=== PATIENT | female | born 1955 | race Caucasian/White ===

== ENCOUNTER 2019-06-27 18:03 | Emergency (ER) | payer MEDICARE ==
[~2019-06-27] VITALS: Ht 152.4 cm; Wt 120.0 kg
[~2019-06-27 18:03] MED LIST: ADVAIR 250-501 EACH INH; ALBUTEROL2.5 MG/0.5 INH; BUPROPION XL300 MG PO; CLEOCIN HCL300 MG PO; COMBIVENT RESPIM4 GM; COMBIVENT RESPIM4 GM INH; FUROSEMIDE40 MG PO; GABAPENTIN300 MG PO; IPRAT-ALBUT 0.5-3 ML INH; K-TAB ER20 MEQ PO; LASIX40 MG PO; LISINOPRIL10 MG PO; LISINOPRIL20 MG PO; LOVASTATIN10 MG PO; LOVASTATIN20 MG PO; METFORMIN HCL1000 M1; METFORMIN HCL1000 MG PO; METFORMIN HCL500 M1 PO; POTASSIUM CHLO20 ME1 PO; QVAR7.3 G1 INH; SULINDAC150 MG PO; TORSEMIDE20 MG PO; VENTOLIN HFA18 GM INH
--- NOTE | 2019-06-28 18:04 | EKG ---
[facility] [address] [facility] [place] [address] Signed Normal sinus rhythm Left anterior fascicular block Nonspecific T wave abnormality Abnormal ECG When compared with ECG of 28-SEP-2016 11:49, Left anterior fascicular block is now present Non-specific change in ST segment in Lateral leads T wave inversion now evident in Anterior leads Confirmed by CIERRA RAZA DO ([id number]) on 06/28/2019 6:04:01 PM Electronically Signed By: CIERRA RAZA DO 06/28/19 1804 PATIENT NAME: VIVIAN VALENTE JEREMIAH Electrocardiogram DATE OF : 55 PHYSICIAN: CIERRA RAZA DO REPORT #: [id number] REPORT IS CONFIDENTIAL AND NOT TO BE RELEASED WITHOUT AUTHORIZATION
== END 2019-06-27 21:29 | disposition short-term general hospital (02) ==
LOC: ED 18:03
DX: J96.00 Acute respiratory failure, unspecified whether with hypoxia or hypercapnia (principal); E11.40 Type 2 diabetes mellitus with diabetic neuropathy, unspecified; J44.9 Chronic obstructive pulmonary disease, unspecified; F17.200 Nicotine dependence, unspecified, uncomplicated; Z79.899 Other long term (current) drug therapy
CPT/HCPCS: 36600; 51702; 71045; 80053; 81001; 82803; 83605; 83880; 84484; 85025; 93005; 93010; 94002; 94640; 99285-25; J1940; J2704; J2930; J7060; J7121

== ENCOUNTER 2019-08-24 20:16 | Emergency (ER) | payer MEDICARE ==
[~2019-08-24] VITALS: Ht 152.4 cm; Wt 99.8 kg
[2019-08-24] MEDS ORDERED: PROZAC40 MG PO ×2 (21:42→21:51)
[2019-08-24] MEDS ORDERED: TORSEMIDE20 MG PO ×2 (21:43→21:51)
[2019-08-24] MEDS ORDERED: BUPROPION XL300 MG PO (21:51)
[2019-08-24] MEDS ORDERED: KEFLEX500 MG PO (21:51)
[2019-08-24] MEDS ORDERED: LOVASTATIN20 MG PO (21:51)
[2019-08-24] MEDS ORDERED: K-TAB ER20 MEQ PO (21:51)
== END 2019-08-24 22:05 | disposition home or self-care (01) ==
LOC: ED 20:16
DX: L03.116 Cellulitis of left lower limb (principal); L03.115 Cellulitis of right lower limb; R60.0 Localized edema; E11.40 Type 2 diabetes mellitus with diabetic neuropathy, unspecified; J44.9 Chronic obstructive pulmonary disease, unspecified; F17.200 Nicotine dependence, unspecified, uncomplicated; Z88.5 Allergy status to narcotic agent; Z88.8 Allergy status to other drugs, medicaments and biological substances; Z79.899 Other long term (current) drug therapy
CPT/HCPCS: 71045; 80053; 83880; 84484; 85025; 96374; 96375; 99284-25; J0690; J1940

== ENCOUNTER 2020-03-18 13:06 | Emergency (ER) | payer MEDICARE ==
[~2020-03-18] VITALS: Ht 152.4 cm; Wt 118.2 kg
[~2020-03-18 13:06] MED LIST changes: +KEFLEX500 MG PO; +PROZAC40 MG PO
[2020-03-18] MEDS ORDERED: DICLOFENAC SODI50 MG PO (13:11)
[2020-03-18] MEDS ORDERED: TORSEMIDE10 MG PO (13:13)
--- NOTE | 2020-03-18 14:54 | NUR ---
I WAS NOTIFIED BY GERARDO PALMER THAT PT WAS BROUGHT IN BY EMT UNRESPONSIVE AND ED STAFF FEEL A NEED TO HAVE FAMILY CALLED IN. CALLED ALL NUMBERTS WE HAD FOUND, SEVERAL NOT WORKING. TYPO ON FACE SHEET CORRECTED WITH CORRECT PHONE # LEFT MSG, NO RESPONSE BY FAMILY TO THIS MOMENT. PENDING IMAGING RESULTS, PT MAY BE TRANSFERRED TO ANOTHER FACILITY. IF NEEDED WILL CONTACT POLICE DISPATCH-THEY WILL SEND OFFICER TO HOME FOR NOTIFICATION. PT IS PRESENTLY ON VENTILATOR
--- NOTE | 2020-03-20 14:11 | EKG ---
[facility] [address] [place] [address] Signed Normal sinus rhythm Right bundle branch block Abnormal ECG When compared with ECG of 27-JUN-2019 18:52, Right bundle branch block is now present Confirmed by CORTEZ BARRIENTOS MD ([id number]) on 03/20/2020 2:11:20 PM Electronically Signed By: CORTEZ BARRIENTOS MD 03/20/20 1411 PATIENT NAME: VIVIAN VALENTE Electrocardiogram DATE OF : 55 PHYSICIAN: CORTEZ BARRIENTOS MD REPORT #: [id number] REPORT IS CONFIDENTIAL AND NOT TO BE RELEASED WITHOUT AUTHORIZATION
== END 2020-03-18 16:12 | disposition short-term general hospital (02) ==
LOC: ED 13:06
DX: R09.2 Respiratory arrest (principal); J18.9 Pneumonia, unspecified organism; I95.9 Hypotension, unspecified; E11.40 Type 2 diabetes mellitus with diabetic neuropathy, unspecified; J44.9 Chronic obstructive pulmonary disease, unspecified; F17.200 Nicotine dependence, unspecified, uncomplicated; Z88.8 Allergy status to other drugs, medicaments and biological substances; Z88.5 Allergy status to narcotic agent; Z79.899 Other long term (current) drug therapy
CPT/HCPCS: 31500; 31720; 36600; 70450; 71045; 71260; 80053; 81001; 82150; 82550; 82803; 83605; 83690; 83735; 83880; 84484; 85025; 87088; 93005; 93010; 94002; 96368; 99285-25; G0480; J2250; J2543; J3010; J3370; J7030; Q9967